=== PATIENT | female | born 1975 | race Caucasian/White ===

== ENCOUNTER → 2020-07-16 08:02 | Outpatient (BNVA) | payer OTHER, SELFPAY | PROVIDERS: Visit Provider Physician Assistant ==

== ENCOUNTER 2020-07-21 08:45 | Outpatient (REF) | payer OTHER, SELFPAY ==
--- NOTE | ~2020-07-21 | XR_ITS ---
EXAMINATION: XR CHEST CLINICAL INFORMATION: Obesity COMPARISON: None TECHNIQUE: 2 views of the chest were obtained. FINDINGS: The cardiac and mediastinal contours are normal. The lungs are clear. There is no pleural effusion or pneumothorax. There is mild scoliosis and degenerative changes of the spine. XR/XR chest 2V IMPRESSION: No evidence for acute disease in the chest.
--- NOTE | 2020-07-21 08:53 | ECG_ITS ---
Test Reason : MORBID OBESITY Blood Pressure : / mmHG Vent. Rate : 078 BPM Atrial Rate : 078 BPM P-R Int : 132 ms QRS Dur : 068 ms QT Int : 398 ms P-R-T Axes : 036 017 040 degrees QTc Int : 453 ms Normal sinus rhythm Normal ECG No previous ECGs available Referred By: Shelly Blanton Electronically Signed By:Raghavendra Ryan
[2020-07-21 09:28] LABS: MANUAL DIFF FLAG NO
[2020-07-21 09:32] LABS: Basophils Percent Auto 0.4 % (0-2); Eosinophils Absolute Auto 0.3 X10*3/uL (0.0-0.4); Eosinophils Percent Auto 3.6 % (0-4); Hematocrit 43.6 % (37-47); Hemoglobin 14.4 g/dl (12.0-16.0); Imm Gran Abs Auto 0.03 X10*3/uL (0.00-0.03); Imm Gran Pct Auto 0.4 % (0.0-0.4); Lymphocytes Absolute Auto 2.3 X10*3/uL (1.2-4.9); Lymphocytes Percent Auto 31.4 % (20-40); Mean Corpuscular Hemoglobin 29.1 pg (27.0-33.0); Mean Corpuscular Volume 88.3 fL (80-98); Monocytes Absolute Auto 0.7 X10*3/uL (0.1-1.2); Neutrophils Percent Auto 55.2 % (45-73); Platelet Count 289 X10*3/uL (160-400); Red Blood Count 4.94 X10*6/uL (4.20-5.50); Red Cell Distribution Width 11.9 % (11.0-16.0); White Blood Count 7.2 X10*3/uL (4.8-10.8)
[2020-07-21 09:59] LABS: Alanine Aminotransferase 15 U/L (0-31); Albumin Level 4.3 g/dL (3.5-5.0); Alkaline Phosphatase 94 U/L (39-117); Anion Gap 14 (12-20); Aspartate Amino Transferase 15 U/L (5-31); Bilirubin Total 0.2 mg/dL (0.0-1.0); Blood Urea Nitrogen 12 mg/dL (9-16); C Reactive Protein 3.38 mg/dL (< or = 0.50); Calcium 9.5 mg/dL (8.4-10.2); Carbon Dioxide 26 mmol/L (22-29); Chloride 105 mmol/L (96-108); Cholesterol 244 mg/dL; Estimated Glomerular Filt Rate > 60; Glucose Fasting 104 mg/dL (60-99); HDL Cholesterol 50 mg/dL; Iron 83 mcg/dL (30-160); LDL Cholesterol Calculated 150 mg/dl; Percent Iron Saturation 21 % (15-50); Potassium 4.6 mmol/L (3.3-5.1); Sodium 140 mmol/L (135-145); Total Iron Binding Capacity 398 mcg/dL (228-428); Total Protein 8.1 g/dL (6.5-8.0); Triglycerides 223 mg/dL; Unsaturated Iron Binding 315 ug/dL
[2020-07-21 10:16] LABS: Estimated Average Glucose 114 mg/dL; Hemoglobin A1c % 5.6 %
[2020-07-21 10:25] LABS: Ferritin 38 ng/mL (10-250); TSH reflex Free T4 4.61 uIU/mL (0.32-4.0); Vitamin D 25-OH Total 18.7 ng/mL (>30)
[2020-07-21 10:26] LABS: Folate 9.5 ng/mL (> or = 4.0); Vitamin B12 630 pg/mL (200-900)
[2020-07-21 11:09] LABS: Free T4 (Free Thyroxine) 0.82 ng/dL (0.71-1.85)
[2020-07-22 09:37] LABS: Insulin Level Total 15.2 uIU/mL
[2020-07-23 09:21] LABS: Calcium (PTHI) 9.5 mg/dL (8.6-10.2); PTHI 65 pg/mL (14-64)
[2020-07-24 01:33] LABS: Zinc 72 mcg/dL (60-130)
[2020-07-25 06:37] LABS: Vitamin B1 12 nmol/L (8-30)
[2020-07-25 21:06] LABS: Vitamin A 48 mcg/dL (38-98)
== END 2020-07-21 08:46 | disposition home or self-care (01) ==
LOC: HO.LAB 08:45
PROVIDERS: PCP Nurse Practitioner; Visit Provider Physician Assistant
DX: E66.01 Morbid (severe) obesity due to excess calories (principal); Z68.41 Body mass index [BMI] 40.0-44.9, adult; R06.02 Shortness of breath
CPT/HCPCS: 36415; 71046; 80053; 80061; 82306; 82607; 82728; 82746; 83036; 83525; 83540; 83970; 84425; 84439; 84443; 84590; 84630; 85025; 86140; 93005

== ENCOUNTER 2020-07-31 12:09 | Outpatient (REF) | payer OTHER, SELFPAY ==
[2020-08-01 13:22] LABS: H Pylori Breath Test NOT DETECTED (NOT DETECTED)
== END 2020-07-31 12:10 | disposition home or self-care (01) ==
LOC: HO.LNP 12:09
PROVIDERS: Physician Assistant; Referring Provider Nurse Practitioner; Visit Provider Physician Assistant
DX: E66.01 Morbid (severe) obesity due to excess calories (principal); Z68.41 Body mass index [BMI] 40.0-44.9, adult; Z71.3 Dietary counseling and surveillance
CPT/HCPCS: 83013

== ENCOUNTER → 2020-08-07 08:13 | Outpatient (BNVA) | payer OTHER, SELFPAY | PROVIDERS: Visit Provider Dietitian, Registered | DX: E66.9 Obesity, unspecified (principal) | CPT/HCPCS: 97802 ==

== ENCOUNTER → 2020-08-20 15:01 | Outpatient (BNVA) | payer OTHER, SELFPAY | PROVIDERS: Visit Provider Surgery ==

== ENCOUNTER → 2020-09-15 08:12 | Outpatient (BNVA) | payer OTHER, SELFPAY | PROVIDERS: Visit Provider Dietitian, Registered | DX: E66.9 Obesity, unspecified (principal); Z68.37 Body mass index [BMI] 37.0-37.9, adult | CPT/HCPCS: 97803 ==

== ENCOUNTER 2020-09-18 08:52 | Outpatient (REF) | payer OTHER, SELFPAY ==
[2020-09-18 11:00] LABS: Vitamin D 25-OH Total 55.4 ng/mL (>30)
== END 2020-09-18 08:53 | disposition home or self-care (01) ==
LOC: HO.LAB 08:52
PROVIDERS: PCP Nurse Practitioner; Visit Provider Physician Assistant
DX: E55.9 Vitamin D deficiency, unspecified (principal); E66.9 Obesity, unspecified; Z68.37 Body mass index [BMI] 37.0-37.9, adult
CPT/HCPCS: 36415; 82306

== ENCOUNTER → 2020-10-29 15:52 | Outpatient (BNVA) | payer OTHER, SELFPAY | PROVIDERS: PCP Nurse Practitioner; Visit Provider Surgery | DX: Z01.818 Encounter for other preprocedural examination (principal); R06.02 Shortness of breath ==

== ENCOUNTER → 2020-10-30 13:18 | Outpatient (BNVA) | payer OTHER, SELFPAY | PROVIDERS: PCP Nurse Practitioner; Visit Provider Physician Assistant ==

== ENCOUNTER 2020-11-04 09:52 | Inpatient (IN) | payer OTHER, SELFPAY ==
[2020-10-20 10:23] VITALS: BMI 36.8
--- NOTE | 2020-10-30 15:12 | ECG_ITS ---
Test Reason : PREOP, SOB Blood Pressure : / mmHG Vent. Rate : 063 BPM Atrial Rate : 063 BPM P-R Int : 128 ms QRS Dur : 072 ms QT Int : 418 ms P-R-T Axes : 013 012 028 degrees QTc Int : 427 ms Normal sinus rhythm Normal ECG When compared with ECG of 21-JUL-2020 08:59, No significant change was found Referred By: Ofelia Metcalf Electronically Signed By:ROSENDO SHETH
[2020-10-30 15:54] LABS: MANUAL DIFF FLAG NO
[2020-10-30 16:01] LABS: INTERNATIONAL NORM RATIO 1.1 (0.9-1.1); Prothrombin Time 12.4 SEC (9.9-13.0)
[2020-10-30 16:07] LABS: Basophils Percent Auto 0.3 % (0-2); Eosinophils Absolute Auto 0.1 X10*3/uL (0.0-0.4); Eosinophils Percent Auto 1.3 % (0-4); Hematocrit 42.8 % (37-47); Hemoglobin 14.3 g/dl (12.0-16.0); Imm Gran Abs Auto 0.03 X10*3/uL (0.00-0.03); Imm Gran Pct Auto 0.3 % (0.0-0.4); Lymphocytes Absolute Auto 2.7 X10*3/uL (1.2-4.9); Lymphocytes Percent Auto 28.1 % (20-40); Mean Corpuscular HGB Conc 33.4 g/dl (31.0-35.0); Mean Corpuscular Hemoglobin 29.2 pg (27.0-33.0); Mean Corpuscular Volume 87.5 fL (80-98); Mean Platelet Volume 11.7 fL (9.4-12.3); Monocytes Absolute Auto 0.7 X10*3/uL (0.1-1.2); Monocytes Percent Auto 7.7 % (2-11); Neutrophils Percent Auto 62.3 % (45-73); Platelet Count 275 X10*3/uL (160-400); Red Blood Count 4.89 X10*6/uL (4.20-5.50); White Blood Count 9.6 X10*3/uL (4.8-10.8)
[2020-10-30 16:11] LABS: Albumin Level 4.3 g/dL (3.5-5.0); Anion Gap 11 (12-20); Blood Urea Nitrogen 14 mg/dL (9-16); Calcium 9.8 mg/dL (8.4-10.2); Carbon Dioxide 27 mmol/L (22-29); Chloride 106 mmol/L (96-108); Creatinine Clr Calc Pharmacy 108.5; Estimated Glomerular Filt Rate > 60; Glucose Random 86 mg/dL (60-115); Potassium 4.1 mmol/L (3.3-5.1); Sodium 140 mmol/L (135-145)
[2020-10-30 17:06] LABS: Appearance Urine CLEAR; Color Urine YELLOW; Glucose Urine UA NEG (NEG); Leukocyte Esterase Urine NEG (NEG); Nitrite Urine NEG (NEG); UACC Culture Trigger NO; Urine Blood 2+ (NEG); Urine Ketones NEG (NEG); Urine Protein NEG (NEG-TRACE)
[2020-10-30 17:27] LABS: RBC Urine 0-2 /HPF (0); UPreg QC Valid YES; Urine Pregnancy NEGATIVE (NEGATIVE); WBC Urine 0-2 /HPF (0-4)
[2020-10-30 17:28] LABS: Bacteria Urine TRACE /LPF; Squamous Epithelial Cell Urine TRACE /LPF
--- NOTE | 2020-11-03 10:30 | P.CONAN_ITS ---
Documented by User: Jessica Ritchie NP 11/03/20 10:32 HPI - Anesthesia Eval Consult details Narrative: 45yo F for Gastrectomy Sleeve, EGD, Poss Diaphragmatic Hernia, Poss Ventral Hernia, Poss open PMFSH Active Problems Active Problems: All Active Problems (Updated 10/29/20 @ 16:47 by Ofelia Metcalf MD) BMI 36.0-36.9,adult (Acute) Preoperative examination (Acute) Surgical defect of lip (Acute) delivery delivered (Acute) Adjustment disorder, unspecified (Acute) BMI 38.0-38.9,adult (Acute) BMI 37.0-37.9, adult (Acute) Obesity (BMI 30-39.9) (Acute) BMI 39.0-39.9,adult (Acute) Vitamin D deficiency (Acute) Shortness of breath (Acute) Hx of breast reduction, elective (Acute) Morbid obesity (Acute) BMI 40.0-44.9, adult (Acute) Syncope (Acute) Hip bursitis, left (Acute) Spinal pain (Acute) Anxiety (Acute) Hypothyroidism (Acute) Past Medical History Medical History (Updated 10/29/20 @ 16:47 by Oeflia Metcalf MD) Anxiety COVID-19 vaccine series completed Hip bursitis, left Hypothyroidism Morbid obesity Obesity (BMI 30-39.9) Shortness of breath Spinal pain Syncope Vitamin D deficiency Family History Family History Mother Heart attack Hypertension Father No problems noted. Brother Diabetes Brother Diabetes Son No problems noted. Surgical History Surgical History (Updated 11/04/20 @ 13:17 by Ofelia Metcalf MD) History of repair of hiatal hernia Hx of breast reduction, elective Hx of section Hx of plastic surgery Status post laparoscopic sleeve gastrectomy Social History Social History Are you a primary direct care counselor to a significant other at home: No Do you presently have visiting nurse or other home services: No Alcohol intake: former Patient Tobacco Use Status: Former Tobacco user Quit Date: 2013 Tobacco use type: Cigarette Use of substances other than those prescribed or required for medical reasons: No Have you been hit, kicked, punched, or otherwise hurt by someone within the past year? If so, by whom?: No Are you DNR?: No Advance Directives: No Advance Directives Information Provided: No Advance Directives on File: No Recently lost weight without trying: No How much weight loss: 14-23 pounds Eating poorly because of decreased appetite: No Nutrition screen score: 2 Nutrition Risks: No Nutritional Risk Patient : No Meds Allergies Allergy/AdvReac Type Severity Reaction Status Date / Time gabapentin [Neurontin] Allergy Severe Hallucinati Verified 10/29/20 16:20 ons Home Medications Medication Instructions Recorded Confirmed Last Taken Type levothyroxine 125 mcg tablet 125 mcg PO DAILY 07/16/20 10/20/20 Unknown History sertraline 50 mg tablet 50 mg PO DAILY 07/16/20 10/20/20 Unknown History Exam Exam Date and Time: November 03, 2020 1030 Height,Weight and Vital Signs: Height 5 ft 4.5 in Weight 98.883 kg Pertinent Lab Results Pertinent Lab Results: Laboratory Tests 10/30/20 10/30/20 10/30/20 15:35 15:35 15:35 WBC 9.6 RBC 4.89 Hgb 14.3 Hct 42.8 MCV 87.5 MCH 29.2 MCHC 33.4 RDW 13.0 Plt Count 275 MPV 11.7 Immature Gran % (Auto) 0.3 Neut % (Auto) 62.3 Lymph % (Auto) 28.1 [place] % (Auto) 7.7 Eos % (Auto) 1.3 Baso % (Auto) 0.3 Lymph # (Auto) 2.7 [place] # (Auto) 0.7 Eos # (Auto) 0.1 Baso # (Auto) 0.0 Abs Immat Gran (auto) 0.03 Absolute Neuts (auto) 6.0 Absolute Nucleated RBC 0.000 Nucleated RBC % (auto) 0.0 PT 12.4 INR 1.1 APTT 37.0 Sodium Potassium Chloride Carbon Dioxide Anion Gap BUN Creatinine Estim Creat Clear Calc Estimated GFR Random Glucose Calcium Albumin Urine Color YELLOW Urine Appearance CLEAR Urine pH 6.0 Ur Specific [place] 1.010 Urine Protein NEG Urine Glucose (UA) NEG Urine Ketones NEG Urine Blood 2+ H Urine Nitrite NEG Ur Leukocyte Esterase NEG Urine RBC 0-2 Urine WBC 0-2 Ur Squamous Epith Cells TRACE Urine Bacteria TRACE Urine Test Blood Type Antibody Screen 10/30/20 10/30/20 10/30/20 15:35 15:35 15:35 WBC RBC Hgb Hct MCV MCH MCHC RDW Plt Count MPV Immature Gran % (Auto) Neut % (Auto) Lymph % (Auto) [place] % (Auto) Eos % (Auto) Baso % (Auto) Lymph # (Auto) [place] # (Auto) Eos # (Auto) Baso # (Auto) Abs Immat Gran (auto) Absolute Neuts (auto) Absolute Nucleated RBC Nucleated RBC % (auto) PT INR APTT Sodium 140 Potassium 4.1 Chloride 106 Carbon Dioxide 27 Anion Gap 11 L BUN 14 Creatinine 0.74 Estim Creat Clear Calc 108.5 Estimated GFR > 60 Random Glucose 86 Calcium 9.8 Albumin 4.3 Urine Color Urine Appearance Urine pH Ur Specific [place] Urine Protein Urine Glucose (UA) Urine Ketones Urine Blood Urine Nitrite Ur Leukocyte Esterase Urine RBC Urine WBC Ur Squamous Epith Cells Urine Bacteria Urine Test NEGATIVE Blood Type O Positive Antibody Screen NEGATIVE Narrative Narrative: EKG 10/2020 Vent. Rate : 063 BPM ? ? Atrial Rate : 063 BPM ?? P-R Int : 128 ms? QRS Dur : 072 ms ? ? QT Int : 418 ms ? ? ? P-R-T Axes : 013 012 028 degrees ?? QTc Int : 427 ms ? Normal sinus rhythm Normal ECG When compared with ECG of 21-JUL-2020 08:59, No significant change was found Assessment and Plan Assessment Anesthesia Assessment: Chart Reviewed Documented by User: Cecy Oakley MD 11/04/20 13:39 [facility] Past Medical History Medical History (Updated 10/29/20 @ 16:47 by Ofelia Metcalf MD) Anxiety COVID-19 vaccine series completed Hip bursitis, left Hypothyroidism Morbid obesity Obesity (BMI 30-39.9) Shortness of breath Spinal pain Syncope Vitamin D deficiency Family History Family History Mother Heart attack Hypertension Father No problems noted. Brother Diabetes Brother Diabetes Son No problems noted. Family history of problems with anesthesia: No Surgical History Surgical History (Updated 11/04/20 @ 13:17 by Ofelia Metcalf MD) History of repair of hiatal hernia Hx of breast reduction, elective Hx of section Hx of plastic surgery Status post laparoscopic sleeve gastrectomy History of Problems with Anesthesia: No Social History Social History Are you a primary direct care counselor to a significant other at home: No Do you presently have visiting nurse or other home services: No Alcohol intake: former Patient Tobacco Use Status: Former Tobacco user Quit Date: 2013 Tobacco use type: Cigarette Use of substances other than those prescribed or required for medical reasons: No Have you been hit, kicked, punched, or otherwise hurt by someone within the past year? If so, by whom?: No Are you DNR?: No Advance Directives: No Advance Directives Information Provided: No Advance Directives on File: No Recently lost weight without trying: No How much weight loss: 14-23 pounds Eating poorly because of decreased appetite: No Nutrition screen score: 2 Nutrition Risks: No Nutritional Risk Patient : No Meds Allergies Allergy/AdvReac Type Severity Reaction Status Date / Time gabapentin [Neurontin] Allergy Severe Hallucinati Verified 10/29/20 16:20 ons Home Medications Medication Instructions Recorded Confirmed Last Taken Type levothyroxine 125 mcg tablet 125 mcg PO DAILY 07/16/20 10/20/20 Unknown History sertraline 50 mg tablet 50 mg PO DAILY 07/16/20 10/20/20 Unknown History Exam Height,Weight and Vital Signs: Height 5 ft 4.5 in Weight 98.883 kg Vital Signs Temp Pulse Resp BP Pulse Ox 11/04/20 10:03 97 F 80 18 117/82 96 Airway Mallampati Class: II TM Dist: >3cm Neck ROM: Full Loose/Missing/Broken Teeth: Yes (Missing back) Heart: RRR Lungs: CTAB Assessment and Plan Assessment Anesthesia Assessment: Anesthesia Plan Discussed Final Anesthetic Review Family History of Problems with Anesthesia: No History of Problems with Anesthesia: No NPO: Yes ASA Class: III Final Preanesthetic Review: No Changes in Pt Med Stat, Meds/Allgs Chart Reviewed, Consent Obtained/Reviewed and Anes Risks/Benef Reviewed Patient Risk: Intermediate Procedure Risk: Intermediate Assessment/Block/Sedation in SS: Assess/Block/Sedation-SS Anesthetic Plan Anesthetic Plan: GA Disposition: Standard PACU
--- NOTE | 2020-11-03 16:07 | MHC.SHP ---
Pre-Procedural Eval Section A Date of Service: 11/03/20 Section B Chief Complaint: Obesity Allergies: Allergies Allergy/AdvReac Type Severity Reaction Status Date / Time gabapentin [Neurontin] Allergy Severe Hallucinati Verified 10/29/20 16:20 ons Plan I have reviewed the history and physical and performed a pertinent physical examination on my patient. No changes have occurred unless specified.
[2020-11-04] VITALS (12 sets, daily range): BP systolic 117–134; BP diastolic 66–87; PULSE 71–93; RESP 16–21; TEMP 36.1–37.2; O2SAT 92–100
[2020-11-04 10:06] LABS: UPreg QC Valid YES; Urine Pregnancy NEGATIVE (NEGATIVE)
[2020-11-04] MEDS: Lactated Ringers 1,000 ML 100 ML IVCONT ×2 (10:22→16:01)
[2020-11-04 10:27] LABS: COVID-19 Test Negative (Negative)
--- NOTE | 2020-11-04 13:04 | PC.NURSE ---
pt voided in the bathroom
--- NOTE | 2020-11-04 13:10 | PM.OP ---
Brief Operative Note Date of Service: 11/04/20 Pre-op diagnosis: OBESITY, BMI 36.1 Post-op diagnosis: other (SAME AND HIATAL HERNIA) Procedure: LAPAROSCOPIC SLEEVE GASTRECTOMY, HIATAL HERNIA REPAIR, INTRAOPERATIVE ENDOSCOPY, AND CL BLOCK Surgeon: Ofelia Metcalf MD Anesthesia: GETA Was an Railroad Signal Operator used for this Procedure?: No Railroad Signal Operator: Mayra Dunn Estimated blood loss (mL): 10 Pathology: other (PARTIAL GASTRECTOMY) Condition: stable Disposition: PACU
--- NOTE | 2020-11-04 13:11 | P.PNGS_ITS ---
Subjective Subjective Date of Service: 11/05/20 Interval history: This is a 45-year-old lady on postoperative day 1. Status post laparoscopic sleeve gastrectomy and hiatal hernia repair doing well. Patient is tolerating stage II diet without difficulty. Patient's vital signs and blood wo rk were within normal limits for postoperative day 1. Patient has been up and ambulating in the hallway and using the incentive spirometer. Physical Exam Vital Signs: Vital Signs: Last Vital Signs Temp 97 F 11/04/20 10:03 Pulse 80 11/04/20 10:03 Resp 18 11/04/20 10:03 BP 117/82 11/04/20 10:03 Pulse Ox 96 11/04/20 10:03 Body Mass Index 36.8 Const: General: cooperative, comfortable and no acute distress GI: Other: Obese, soft, nondistended, mild appropriate incisional tenderness. Incisions are clean dry intact with surgical glue in place. There is no erythema or drainage present. Extrem: Other: Extremities are warm well-perfused throughout bilateral lower extremities without edema or tenderness to palpation. Procedures Date of Service Date of Service: 11/05/20 Progress Note: A&P Assessment and plan (1) Status post laparoscopic sleeve gastrectomy: Status: Acute Assessment and Plan: This is a 45-year-old lady on postoperative day 1. Status post laparoscopic sleeve gastrectomy and hiatal hernia repair doing well. Patient will advance to stage III diet and be discharged home once tolerating. Patient will follow-up with Dr. Metcalf in 2 weeks time frame. (2) History of repair of hiatal hernia: Status: Acute (3) Obesity (BMI 30-39.9): Status: Acute (4) BMI 36.0-36.9,adult: Status: Acute Fall Risk Details Current Medications: Current Medications Generic Name Dose Route Start Last Admin Trade Name Freq PRN Reason Stop Dose Admin Albuterol Sulfate 2.5 mg 11/04/20 09:52 Albuterol Sulfate (0.083%) 2.5 Mg/3 Ml Vial.Neb INHALE ONCE PRN Shortness of Breath/Wheezing Lactated Ringer's 1,000 mls @ 100 mls/hr 11/04/20 10:00 11/04/20 10:22 Lr IVCONT 100 mls/hr .Q10H BIRDIE Administration Time Spent With Patient Time: Total time spent is greater than 50% in coordination of care (as documented) at patient's floor/unit and/or counseling patient: Time with patient: less than 15 minutes Quality Stroke Does the patient have a stroke diagnosis?: No VTE Prior VTE?: No VTE Risk Level:: Surgical - moderate VTE Device Contraindication: N/A - Device Ordered VTE Drug Contraindication: Treatment Not Indicated
--- NOTE | 2020-11-04 13:18 | W.PM.OPN ---
Operative Note Operative Note Date of Service: 11/04/20 Narrative: Patient was brought into the operating room and placed on the operating room table in the supine position. General anesthesia was induced. Normal DVT prophylaxis was instituted and the patient received 2 grams of cefotetan preoperatively. The abdomen was then prepped and draped in the normal sterile fashion. A safety time-out was performed. A mixture of 1% lidocaine with epinephrine and ?% Marcaine plain was used to anesthetize the planned incision site in the left upper quadrant. A #11 scalpel was used to make a 5 mm left upper quadrant transverse incision through which a veress needle was placed. Three pops were heard going through the fascia. A saline drop test was used to confirm that the veress needle was intraabdominal. An optiview technique was then used to place a 5mm port in the left upper quadrant. A 5 mm 30 degree laproscope was then placed through this port and the abdominal cavity was surveyed and was normal. The patient was placed in reverse Trendelenburg positioning. A pedro liver retractor was then placed in the subxyphoid position and it was used to hold up the left lobe of the liver to the abdominal wall. This was secured to the bed using the liver retractor mills. A CL block was then performed for pain control on the right side of the abdomen. A 5 mm port was placed in the right upper quadrant near the falciform ligament. A 12 mm port was then placed in the mid epigastrium. One additional 5 mm port was placed in the left upper quadrant just to the left of the placement of the first port. I then performed a CL block on the left side of the abdomen. I then removed the epigastric fat pad; there was a small anterior hiatal hernia noted. I reapproximated the left and right crura with a total of 2 stitches of 2-0 ethibond and a laparoscopic knot pusher. There was no residual hiatal hernia. I then opened up the angle of His. We then gained entry into the lesser sac about 4-5 cm from the pylorus. I had anesthesia place a 34 Arabic orogastric tube into the distal antrum to use as a sizing tool for gastric pouch size. I divided the short gastric vessels up to the angle of His. We then started the creation of the gastric pouch by firing a 60 mm purple load endostapler up the stomach about 4-5 cm from the pylorus. We completed the creation of the gastric pouch using a total of 4 firings of a 60 mm purple load stapler. We had anesthesia remove the orogastric tube, then we clamped across the distal antrum using a fired 60 mm endostapler. We flattened the patient and then instilled normal saline surrounding the newly created staple line. I then performed an on-table endoscopy. I passed the gastroscopy into the posterior oropharynx and down the esophagus evaluating the esophageal mucosa which was normal. There was no evidence of hiatal hernia. I passed the gastroscope into the gastric pouch and insufflated the gastric pouch. There was healthy pink mucosa and no evidence of active bleeding. There was no evidence of leak on laparoscopy. I desufflated the gastric pouch and removed the endoscope. I removed the endostapler from the abdomen and suctioned the fluid from the left upper quadrant. I then removed the partial gastrectomy specimen through the epigastric 12 mm port site. I reapproximated the 12 mm port using a 0 maxon suture with a laparoscopic suture passer. I instilled local anesthetic into the fascial closure site and tied the suture down at a pressure of 8-10 mm of Hg. There was no residual fascial defect. We removed the liver retractor and the left upper quadrant 5 mm ports under direct visualization. There was no evidence of any active bleeding. I desufflated the abdomen through the last remaining port and removed the laparoscope and 5 mm port. We reapproximated all incisions with a 4-0 monocryl subcuticular stitch. We cleaned and dried the abdominal skin and applied dermabond skin glue. All count were correct at the end of the case. The patient was awake and in stable condition prior to extubation and transfer to the recovery room.
--- NOTE | 2020-11-04 13:20 | P.DS_ITS ---
DS: Providers Provider Date of Service: 11/04/20 Date of admission: 11/04/20 09:52 Date of discharge: 11/05/20 Primary care physician: Tammy Malagon NP Admitting clinician: Ofelia Metcalf Attending physician on admission: Ofelia Metcalf Attending physician on discharge: Ofelia Metcalf Discharging clinician: Ofelia Metcalf DS: Diagnosis Discharge Diagnosis (1) Status post laparoscopic sleeve gastrectomy: Status: Acute (2) History of repair of hiatal hernia: Status: Acute (3) Obesity (BMI 30-39.9): Status: Acute (4) BMI 36.0-36.9,adult: Status: Acute DS: Summary Hospital Course Hospital Course: This is a 45-year-old lady who was admitted through same day surgery to [facility] where she underwent a laparoscopic sleeve gastrectomy and hiatal hernia repair without event. Patient was sent to the surgical floor overnight. Patient was started on stage II bariatric diet on postoperative day number 0. Patient was up and ambulating using incentive spirometer on postop day 0. By postoperative day 1. The patient was noted to be doing well she was advanced to a stage III bariatric diet and tolerated well. Patient was then discharged home. Status at Discharge Functional status at discharge: independent ambulation Overall status at discharge: patient is back to baseline Time Spent with Patient Time attestation: Total time spent providing and/or coordinating discharge services: Discharge coordination time: Less than 30 minutes Quality: Stroke Does the patient have a stroke diagnosis?: No Physical Exam Vital Signs: Vital Signs: Last Vital Signs Temp 97 F 11/04/20 10:03 Pulse 80 11/04/20 10:03 Resp 18 11/04/20 10:03 BP 117/82 11/04/20 10:03 Pulse Ox 96 11/04/20 10:03 Body Mass Index 36.8 DS: Data Data Completed and Pending Labs on day of discharge: Laboratory Results - last 24 hr 11/04/20 11/04/20 09:50 09:50 Urine Test NEGATIVE COVID-19 ([facility]) Negative COVID-19 Clin Com See Note Discharge Plan Discharge Patient Disposition: Home, Self-Care Discharge Diagnosis: Obesity, BMI 36.1, status post sleeve gastrectomy Referrals: Tammy Malagon NP [Primary Care Provider] - 1 Week Discharge Medications: Continued levothyroxine 125 mcg tablet 125 mcg PO DAILY RF: 0 sertraline 50 mg tablet 50 mg PO DAILY RF: 0 ondansetron HCl [Zofran] 4 mg tablet 4 mg PO Q6H PRN (Reason: nausea and vomiting) Qty: 30 RF: 1 acetaminophen [Tylenol Extra Strength] 500 mg tablet 1,000 mg PO Q6H PRN (Reason: pain) Qty: 30 RF: 1 famotidine [Pepcid AC] 20 mg tablet 20 mg PO DAILY Qty: 30 RF: 1 docusate sodium [Colace] 100 mg capsule 100 mg PO BID Qty: 30 RF: 1 simethicone [Gas Relief (simethicone)] 80 mg tablet,chewable 80 mg PO TID-QID PRN (Reason: abdominal distention) Qty: 30 RF: 1 Discharge Orders: Discharge Order (Routine); Ordered 11/05/20 Ordered By: Ofelia Metcalf Activity on Discharge: No heavy lifting Stand Alone Forms: Patient Portal Discharge page Activity Restrictions/Additional Instructions: No lifting greater than 5 lbs for the next 4 weeks. No driving within 24 hours of taking narcotic pain medications. If you do not move your bowels in the next 2 days, please take milk of magnesia over the counter or MiraLax. Please follow the post op diet and do not advance your diet until you are seen in the office in about 2 weeks. Please walk around your home every hour or two to prevent blood clots from forming in your legs. You do not need to wake from sleeping to walk. Please sleep in a bed or couch to prevent kinking at the hips and knees. Please take your incentive spirometer (your lung mandolin repairer) home with you and use it for the next few days to prevent pneumonias. You may shower, no hot tubs, baths or swimming pools. Please call the office with any questions or concerns such as increasing abdominal pain, fever, chills, shortness of breath, chest pain, leg pain or swelling, or redness or drainage from your incisions. Please stay on stage 3 diet which includes sugar free clear liquids such as ice pops and jello and broth and crystal light. Avoid all carbonation. Please drink 2-3 protein shakes with at least 20-30 grams of protein daily or 2 of the celebrate 4:1 shakes which can be purchased in our office in addition to 1 other protein shake of your choice. celebrate shakes have all of the bariatric vitamins you need if you consume these shakes. If you are drinking other protein shakes, you will need to order the bariatric vitamin Opurity chewable online, or use the celebrate bariatric vitamin and an additional celebrate calcium daily which will provide all the vitamins you need. You may take the bariatric capsule vitamin in about 1 month. Please make sure you are consuming at least 40- 60 ounces of water in addition to your 2-3 protein shakes daily. You do not need to use the medicine cups to drink year shakes or water following discharge. Just drink slowly in order to ensure that she consume all of your liquids for the day. The medicine cups were only to teach you to drink slowly. They are not required at home. Do not hesitate to contact the office with any questions. Care Plan Goals: Weight loss with a goal BMI of 25 Health Concerns: Obesity Plan of Treatment: Patient is status post sleeve gastrectomy Assessment: Patient is doing well
[2020-11-04] MEDS: cefoTEtan disodium 2 GM in 0.9 % Sodium Chloride 50 ML IV (13:36)
[2020-11-04] MEDS: Famotidine/PF 20 MG/2 ML VIAL IVPUSH ×2 (15:51→21:34)
[2020-11-04] MEDS: ondansetron HCL 4 MG/2 ML VIAL IVPUSH ×2 (17:13→22:31)
[2020-11-04] MEDS: Metoclopramide HCl 10 MG/2 ML VIAL IVPUSH (17:14)
[2020-11-05] VITALS: BP 127/79; PULSE 93; RESP 18; TEMP 36.2; O2SAT 91
[2020-11-05] MEDS: Lactated Ringers 1,000 ML 100 ML IVCONT (00:50)
[2020-11-05] MEDS: cefoTEtan disodium 2 GM in 0.9 % Sodium Chloride 50 ML IV (01:56)
[2020-11-05 04:00] VITALS: BP 130/75; PULSE 76; RESP 16; TEMP 36.3; O2SAT 97
[2020-11-05 05:48] LABS: Hematocrit 38.7 % (37-47); Mean Corpuscular HGB Conc 33.6 g/dl (31.0-35.0); Mean Corpuscular Hemoglobin 29.5 pg (27.0-33.0); Mean Platelet Volume 11.2 fL (9.4-12.3); Platelet Count 275 X10*3/uL (160-400); Red Cell Distribution Width 12.8 % (11.0-16.0); White Blood Count 13.6 X10*3/uL (4.8-10.8)
[2020-11-05 06:10] LABS: Anion Gap 13 (12-20); Blood Urea Nitrogen 7 mg/dL (9-16); Carbon Dioxide 24 mmol/L (22-29); Chloride 103 mmol/L (96-108); Creatinine Clr Calc Pharmacy 95.5; Estimated Glomerular Filt Rate > 60; Glucose Random 134 mg/dL (60-115); Potassium 4.6 mmol/L (3.3-5.1); Sodium 135 mmol/L (135-145)
[2020-11-05] MEDS: Levothyroxine Sodium 125 MCG TABLET PO (06:18)
--- NOTE | 2020-11-05 07:31 | HO.POSTANES ---
Post Anesthesia Evaluation Post Anesthesia Evaluation Vital Signs: Vital Signs Temp Pulse Resp BP Pulse Ox 11/05/20 04:00 97.3 F 76 16 130/75 97 11/05/20 00:00 97.2 F 93 18 127/79 91 L 11/04/20 20:00 98.2 F 84 16 129/66 98 Anesthesia: General Endotracheal-GETA Mental Status: Awake Pain Control: Satisfactory Nausea/Vomiting: None Hydration: Adequate Anesthesia-Related Issues: No Anes. Related Issues
[2020-11-05 08:00] VITALS: BP 127/78; PULSE 71; RESP 17; TEMP 36.2; O2SAT 96
[2020-11-05] MEDS: Famotidine/PF 20 MG/2 ML VIAL IVPUSH (09:02)
--- NOTE | 2020-11-05 11:08 | MHC.CM.PN ---
PT REPORTS SHE LIVES WITH HER MOTHER AND 18 YO SON. PT REPORTS SHE IS INDEPENDENT AND HAS NO DME AND NO SERVICES. PT REPORTS SHE MAY BE DOING A NEW HCP SOON BUT IS NOT PREPARED TO DO SO TODAY SHE WANTS TO DISCUSS IT WITH HER FAMILY FIRST. PT CONFIRMS HER PCP IS RONI THORNTON. PT WILL DC HOME TODAY WITH NO SERVICES PT WILL SELF ARRANGE TRANSPORT
== END 2020-11-05 10:29 | disposition home or self-care (01) | DRG 621 ==
LOC: HO.SSSA 15:08 → HO.S3 18:05
PROVIDERS: Nurse Practitioner; Admitting Provider Surgery; PCP Nurse Practitioner; Visit Provider Surgery
PROC: 0DB64Z3 Excision of Stomach, Percutaneous Endoscopic Approach, Vertical (ICD-10-PCS; CPT 43845; principal; 2020-11-04 11:50)
DX: E66.9 Obesity, unspecified (principal); E03.9 Hypothyroidism, unspecified; K44.9 Diaphragmatic hernia without obstruction or gangrene; Z68.36 Body mass index [BMI] 36.0-36.9, adult; Z20.822 Contact with and (suspected) exposure to COVID-19; Z87.891 Personal history of nicotine dependence; Z79.899 Other long term (current) drug therapy
CPT/HCPCS: 36415; 80048; 81001; 81025; 82040; 85025; 85027; 85610; 85730; 86850; 86900; 86901; 87635; 88307; 88342; 93005; 99024; C1776; J0131; J1100; J1170; J2250; J2405; J2550; J2765; J3010

== ENCOUNTER → 2020-11-18 08:48 | Outpatient (BNVA) | payer OTHER, SELFPAY | PROVIDERS: PCP Nurse Practitioner; Visit Provider Surgery ==

== ENCOUNTER → 2020-12-18 08:13 | Outpatient (BNVA) | payer OTHER, SELFPAY | PROVIDERS: PCP Nurse Practitioner; Visit Provider Physician Assistant Surgical ==

== ENCOUNTER → 2021-01-07 08:10 | Outpatient (BNVA) | payer OTHER, SELFPAY | PROVIDERS: PCP Nurse Practitioner; Visit Provider Dietitian, Registered | DX: E66.9 Obesity, unspecified (principal); Z68.31 Body mass index [BMI] 31.0-31.9, adult | CPT/HCPCS: 97803 ==

== ENCOUNTER → 2021-02-03 08:07 | Outpatient (BNVA) | payer OTHER, SELFPAY | PROVIDERS: PCP Nurse Practitioner; Visit Provider Physician Assistant Surgical ==

== ENCOUNTER → 2021-03-05 08:19 | Outpatient (BNVA) | payer OTHER, SELFPAY | PROVIDERS: PCP Nurse Practitioner; Visit Provider Physician Assistant Surgical ==